=== PATIENT | female | born 1960 | race African-American/Black ===

== ENCOUNTER 2024-05-08 10:41 | Inpatient (IN) | payer BC, OTHER ==
[~2024-05-08] VITALS: Ht 165.1 cm; Wt 91.2 kg
[2024-05-08 12:06] LABS: BASOPHILS % 0.2 % (0.0-2.0); DIFFERENTIAL COMMENT 0; EOSINOPHILS % 1.2 % (0.0-5.0); HEMATOCRIT. 36.3 % (36.0-48.0); HEMOGLOBIN. 11.7 g/dL (12.0-16.0); LYMPHOCYTES % 10.1 % (20.0-50.0); MEAN CORPUSCULAR HEMOGLOBIN 32.9 pg (28.0-32.0); MEAN CORPUSCULAR HGB CONC 32.3 g/dL (31.0-37.0); MEAN CORPUSCULAR VOLUME 101.8 fL (81.0-99.0); MONOCYTES % 6.1 % (2.0-8.0); NEUTROPHILS % 82.4 % (40.0-76.0); PLATELET 281 x1000/uL (130-400); RED BLOOD CELL COUNT 3.57 mill/uL (4.2-5.4); RED CELL DISTRIBUTION WIDTH 16.2 % (11.6-14.6); WHITE BLOOD COUNT 6.6 x1000/uL (4.5-11.0)
[2024-05-08 12:19] LABS: CHLORIDE 97 mEq/L (98-107); SODIUM 139 mEq/L (136-145)
[2024-05-08 12:20] LABS: CALCIUM 8.9 mg/dL (8.7-10.4); CARBON DIOXIDE 27 mEq/L (21-32)
[2024-05-08 12:25] LABS: CREATININE 1.5 mg/dL (0.6-1.0); GLUCOSE 71 mg/dL (70-105); LACTIC ACID 2.5 mmol/L (0.4-2.0); UREA NITROGEN BLOOD 13 mg/dL (9-23)
[2024-05-08 12:27] LABS: ALANINE AMINOTRANSFERASE 47 IU/L (10-49); ALBUMIN 3.2 g/dL (3.2-4.8); ASPARTATE AMINOTRANSFERASE 39 IU/L (<34)
[2024-05-08 12:28] LABS: BILIRUBIN TOTAL 3.3 mg/dL (0.1-1.0); PROTEIN TOTAL 7.2 g/dL (6.0-8.3)
[2024-05-08 12:29] LABS: THYROID STIMULATING HORMONE 0.96 uIU/mL (0.55-4.78)
[2024-05-08 12:30] LABS: T4 FREE 1.21 ng/dL (0.89-1.76)
[2024-05-08 12:58] LABS: POTASSIUM 1.6 mEq/L (3.5-5.1)
[2024-05-08 12:59] LABS: TROPONIN I HIGH SENSITIVITY 292 ng/L (3.0-34)
[2024-05-08] MEDS: KCL 20MEQ/100ML PREMIX 100 ML IV ONE (13:15)
[2024-05-08] MEDS: ASPIRIN 81MG TABLET PO ONE (14:25)
[2024-05-08] MEDS: POTASSIUM CHLORIDE 20MEQ TABLET SR PO ONE (14:25)
[2024-05-08] MEDS: CEFTRIAXONE 1GM/50ML 50 ML IV ONE (14:25)
[2024-05-08] MEDS: SODIUM CHLORIDE 0.9% 1,000 ML IV ONE (14:26)
[2024-05-08 16:00] VITALS: BP 144/75; PULSE 100; RESP 18; TEMP 36.4; O2SAT 97
[2024-05-08] MEDS: AZITHROMYCIN 500MG/250ML 250 ML IV SCH (16:10)
[2024-05-08] MEDS: IPRATROPIUM/ALBUTEROL 0.5-3(2.5)MG/3ML NEB HHN ONE (16:55)
[2024-05-08 17:28] LABS: TROPONIN I HIGH SENSITIVITY 282 ng/L (3.0-34)
[2024-05-08] MEDS ORDERED: KCL 20MEQ/100ML PREMIX 100 ML IV SCH (19:45)
[2024-05-08 20:00] VITALS: BP 112/61; PULSE 97; RESP 20; TEMP 35.9; O2SAT 97
[2024-05-08] MEDS: POTASSIUM CHLORIDE 40MEQ in DEXT 5% WATER 250ML IV NR (22:00)
[2024-05-09] VITALS (10 sets, daily range): BP systolic 91–114; BP diastolic 51–68; PULSE 97–114; RESP 15–22; TEMP 36.1–37.2; O2SAT 92–96
[2024-05-09 06:47] LABS: BASOPHILS % 0.1 % (0.0-2.0); DIFFERENTIAL COMMENT 0; EOSINOPHILS % 1.3 % (0.0-5.0); HEMATOCRIT. 34.8 % (36.0-48.0); HEMOGLOBIN. 11.7 g/dL (12.0-16.0); LYMPHOCYTES % 18.4 % (20.0-50.0); MEAN CORPUSCULAR HEMOGLOBIN 33.6 pg (28.0-32.0); MEAN CORPUSCULAR HGB CONC 33.5 g/dL (31.0-37.0); MEAN CORPUSCULAR VOLUME 100.1 fL (81.0-99.0); MEAN PLATELET VOLUME 8.7 fl (7.4-10.4); MONOCYTES % 10.2 % (2.0-8.0); PLATELET 247 x1000/uL (130-400); RED BLOOD CELL COUNT 3.47 mill/uL (4.2-5.4); RED CELL DISTRIBUTION WIDTH 16.1 % (11.6-14.6); WHITE BLOOD COUNT 7.5 x1000/uL (4.5-11.0)
[2024-05-09 07:03] LABS: CALCIUM 8.7 mg/dL (8.7-10.4)
[2024-05-09 07:07] LABS: CREATININE 1.8 mg/dL (0.6-1.0); HEPATITIS B SURFACE ANTIGEN NEGATIVE (Negative)
[2024-05-09 07:10] LABS: PHOSPHORUS 1.5 mg/dL (2.5-4.9)
[2024-05-09 07:28] LABS: HEPATITIS C AB NON REACTIVE (Neg) (Negative)
[2024-05-09] MEDS: IPRATROPIUM/ALBUTEROL 0.5-3(2.5)MG/3ML NEB HHN SCH (08:57)
[2024-05-09 10:18] LABS: POTASSIUM 2.1 mEq/L (3.5-5.1)
[2024-05-09] MEDS: POTASSIUM CHLORIDE 20MEQ TABLET SR PO SCH (12:01)
[2024-05-09] MEDS: CEFTRIAXONE 1GM/50ML 50 ML IV SCH (12:22)
[2024-05-09] MEDS: POTASSIUM PHOSPHATE 30 MMOL in SODIUM CHLORIDE 0.9% 490 ML IV NR (13:36)
[2024-05-09] MEDS: METRONIDAZOLE 500 MG PREMIX 100 ML IV SCH (13:36)
[2024-05-09] MEDS ORDERED: AZITHROMYCIN 500MG/250ML 250 ML IV SCH (16:00)
[2024-05-09] MEDS: DOXYCYCLINE HYCLATE 100MG CAPSULE PO SCH (17:16)
[2024-05-09] MEDS: MONTELUKAST SODIUM 10MG TABLET PO SCH (17:16)
[2024-05-09] MEDS: PREDNISONE 10MG TABLET PO SCH (17:16)
[2024-05-09] MEDS ORDERED: PNEUMOCOCCAL 20-VAL CONJ-DIP CRM 0.5ML IM ONE (18:00)
[2024-05-09] MEDS ORDERED: INFLUENZA VACCINE 05/PF 0.5 ML SYRINGE IM ONE (18:00)
[2024-05-10] VITALS (10 sets, daily range): BP systolic 96–107; BP diastolic 56–67; PULSE 77–104; RESP 18–20; TEMP 36.3–37.1; O2SAT 93–97
[2024-05-10 06:24] LABS: HEMATOCRIT. 26.9 % (36.0-48.0); HEMOGLOBIN. 9.1 g/dL (12.0-16.0); MEAN CORPUSCULAR HEMOGLOBIN 34.4 pg (28.0-32.0); MEAN CORPUSCULAR HGB CONC 33.9 g/dL (31.0-37.0); MEAN CORPUSCULAR VOLUME 101.4 fL (81.0-99.0); RED BLOOD CELL COUNT 2.65 mill/uL (4.2-5.4); WHITE BLOOD COUNT 8.8 x1000/uL (4.5-11.0)
[2024-05-10 06:41] LABS: DIFFERENTIAL COMMENT 1
[2024-05-10 06:57] LABS: CALCIUM 8.1 mg/dL (8.7-10.4)
[2024-05-10 07:01] LABS: CREATININE 2.2 mg/dL (0.6-1.0)
[2024-05-10 07:03] LABS: PHOSPHORUS 4.4 mg/dL (2.5-4.9)
[2024-05-10 08:48] LABS: POTASSIUM 2.7 mEq/L (3.5-5.1)
[2024-05-10 09:44] LABS: PLATELET 193 x1000/uL (130-400)
[2024-05-10] MEDS: POTASSIUM CHLORIDE 20MEQ TABLET SR PO SCH (11:23)
[2024-05-10 14:05] LABS: PLATELET ESTIMATE NORMAL
[2024-05-11] VITALS (10 sets, daily range): BP systolic 97–138; BP diastolic 55–77; PULSE 82–107; RESP 14–22; TEMP 36.3–36.6; O2SAT 93–99
[2024-05-11 13:16] LABS: DIFFERENTIAL COMMENT 0; HEMATOCRIT. 31.1 % (36.0-48.0); LYMPHOCYTES % 8.8 % (20.0-50.0); MEAN CORPUSCULAR HEMOGLOBIN 33.1 pg (28.0-32.0); MEAN CORPUSCULAR HGB CONC 32.2 g/dL (31.0-37.0); MEAN CORPUSCULAR VOLUME 102.8 fL (81.0-99.0); MEAN PLATELET VOLUME 8.4 fl (7.4-10.4); NEUTROPHILS % 84.2 % (40.0-76.0); PLATELET 183 x1000/uL (130-400); RED BLOOD CELL COUNT 3.02 mill/uL (4.2-5.4); RED CELL DISTRIBUTION WIDTH 16.3 % (11.6-14.6); WHITE BLOOD COUNT 11.5 x1000/uL (4.5-11.0)
[2024-05-11 13:25] LABS: CHLORIDE 104 mEq/L (98-107); POTASSIUM 4.1 mEq/L (3.5-5.1); SODIUM 135 mEq/L (136-145)
[2024-05-11 13:26] LABS: CALCIUM 8.7 mg/dL (8.7-10.4); CARBON DIOXIDE 20 mEq/L (21-32)
[2024-05-11 13:31] LABS: CREATININE 1.7 mg/dL (0.6-1.0); GLUCOSE 123 mg/dL (70-105); UREA NITROGEN BLOOD 20 mg/dL (9-23)
[2024-05-11 13:34] LABS: PHOSPHORUS 1.8 mg/dL (2.5-4.9)
[2024-05-11] MEDS: METRONIDAZOLE 500MG TABLET PO SCH (18:12)
[2024-05-11] MEDS: POTASSIUM PHOSPHATE 30 MMOL in SODIUM CHLORIDE 0.9% 490 ML IV NR (21:57)
[2024-05-12] VITALS (9 sets, daily range): BP systolic 113–166; BP diastolic 53–70; PULSE 78–109; RESP 16–22; TEMP 36.4–36.6; O2SAT 93–99
[2024-05-12 07:13] LABS: CARBON DIOXIDE 18 mEq/L (21-32); CHLORIDE 106 mEq/L (98-107); POTASSIUM 5.5 mEq/L (3.5-5.1); SODIUM 137 mEq/L (136-145)
[2024-05-12 07:14] LABS: CALCIUM 8.4 mg/dL (8.7-10.4)
[2024-05-12 07:19] LABS: CREATININE 1.5 mg/dL (0.6-1.0); GLUCOSE 90 mg/dL (70-105); UREA NITROGEN BLOOD 18 mg/dL (9-23)
[2024-05-12 07:21] LABS: PHOSPHORUS 1.6 mg/dL (2.5-4.9)
[2024-05-12] MEDS ORDERED: LIDOCAINE HCL 1% 10 MG/ML 10ML VIAL ONE (08:55)
[2024-05-12] MEDS: PREDNISONE 10MG TABLET PO SCH (11:05)
[2024-05-12 12:51] LABS: BASOPHILS % 0.1 % (0.0-2.0); DIFFERENTIAL COMMENT 0; EOSINOPHILS % 0.2 % (0.0-5.0); HEMATOCRIT. 26.3 % (36.0-48.0); HEMOGLOBIN. 8.4 g/dL (12.0-16.0); LYMPHOCYTES % 9.9 % (20.0-50.0); MEAN CORPUSCULAR HEMOGLOBIN 32.8 pg (28.0-32.0); MEAN CORPUSCULAR HGB CONC 31.9 g/dL (31.0-37.0); MEAN PLATELET VOLUME 8.4 fl (7.4-10.4); MONOCYTES % 7.6 % (2.0-8.0); NEUTROPHILS % 82.2 % (40.0-76.0); PLATELET 128 x1000/uL (130-400); RED BLOOD CELL COUNT 2.55 mill/uL (4.2-5.4); RED CELL DISTRIBUTION WIDTH 16.2 % (11.6-14.6); WHITE BLOOD COUNT 11.5 x1000/uL (4.5-11.0)
[2024-05-13] VITALS (9 sets, daily range): BP systolic 101–143; BP diastolic 58–87; PULSE 89–111; RESP 18–20; TEMP 36.4–36.6; O2SAT 94–98
== END 2024-05-13 18:55 | disposition home or self-care (01) | DRG 871 ==
LOC: ER 10:41 → EDBEDREQ 13:20 → 8WST 16:20 → EDBEDREQ 16:52 → EDBEDREQTM 16:52
PROVIDERS: ADMIT Internal Medicine; ATTEND Internal Medicine
PROC: 02HV33Z Insertion of Infusion Device into Superior Vena Cava, Percutaneous Approach (ICD-10-PCS; principal; 2024-05-12)
PROC: B548ZZA Ultrasonography of Superior Vena Cava, Guidance (ICD-10-PCS; 2024-05-12)
PROC: 5A0935A Assistance with Respiratory Ventilation, Less than 24 Consecutive Hours, High Flow/Velocity Cannula (ICD-10-PCS; 2024-05-13)
DX: A41.9 Sepsis, unspecified organism (principal); G93.41 Metabolic encephalopathy; J18.9 Pneumonia, unspecified organism; J96.01 Acute respiratory failure with hypoxia; J44.0 Chronic obstructive pulmonary disease with (acute) lower respiratory infection; J44.1 Chronic obstructive pulmonary disease with (acute) exacerbation; E87.20 Acidosis, unspecified; N17.9 Acute kidney failure, unspecified; E87.6 Hypokalemia; D64.9 Anemia, unspecified; E66.9 Obesity, unspecified; E83.39 Other disorders of phosphorus metabolism; I10 Essential (primary) hypertension; Z68.33 Body mass index [BMI] 33.0-33.9, adult
CPT/HCPCS: 36415; 36573; 71045; 80048; 80053; 83605; 83735; 83880; 84100; 84145; 84439; 84443; 84484; 85025; 86705; 86738; 87340; 93005; 94070; 94640; 94760; 98960; 99291; C1725; C1893; J0456; J0696; J2003; J3480; J3490; J7030; J7040; J7060; J7512